=== PATIENT | female | born 1940 | race Caucasian/White ===

== ENCOUNTER 2016-12-12 13:15 | Emergency (ER) | payer MEDICAID, MEDICARE ==
[~2016-12-12] VITALS: Ht 160 cm; Wt 100.9 kg
[2016-12-12 13:26] VITALS: BP 141/75; PULSE 93; RESP 18; O2SAT 99
--- NOTE | 2016-12-12 14:04 | ED.REPORT ---
HPI-General Illness Date of Service Dec 12, 2016 ED Provider: Allie is a 76-year-old female presenting with a complaint of hemorrhoid pain. She reports a one day history of an external hemorrhoid. She complains of pain aggravated by bowel movements. Admits constipation. Denies other symptoms including melena, hematochezia. Nursing Notes Stated Complaint: HEMORRHOID PAIN Chief Complaint: General Complaint Nursing Notes Reviewed: Yes Allergies: Coded Allergies: No Known Allergies (Unverified , 12/12/16) General Time Seen by MD: 14:03 Chief Complaint Hemorrhoid Past Medical History Past Medical History Mantle cell lymphoma, cervical and ovarian cancer. Currently cancer free. Review of Systems Negative unless stated otherwise in history of present illness Physical Exam General: Well appearing, well developed, well nourished, no acute distress. Rectum: 1 cm x 2 cm partially thrombosed external hemorrhoid. Head: Atraumatic, normocephalic. Eyes: No scleral icterus or injection. No discharge. Vision grossly intact. ENT: Voice clear, hearing grossly intact. Respiratory: No respiratory distress, no increased work of breathing. Speaks in complete sentences. Skin: Warm and dry. Neurological: Grossly nonfocal. Psychological: alert and oriented. Speech appropriate, linear and logical. Behavior appropriate. Vital Signs Vital Signs Date Time Temp Pulse Resp B/P Pulse Ox O2 Delivery O2 Flow Rate FiO2 12/12/16 16:33 82 16 140/80 99 Room Air 12/12/16 13:26 37.2 93 18 141/75 99 Normal Procedures Procedure Notes: Hemorrhoid clot excision: Anesthesia with 1% lidocaine with epinephrine 1 mL delivered via 27-gauge needle, incision approximately 1 cm long was placed in the lateral aspect of the hemorrhoid and several small clots are excised. Patient tolerated the procedure well with minimal bleeding. Re-Eval/Medical Decision Med Decision/Clinical Course 76 year old female with a a one-day history of hemorrhoid pain. Reports a remote history of similar. Physical examination reveals a large partially thrombosed external hemorrhoid. This is anesthetized and excise per the procedure note above. Patient feels improvement, wishes to be discharged home. Discussed symptomatic care, primary care follow-up, return to return precautions. Patient verbalized understanding of and consented to plan. While writing this note I realize that while we discussed use of Anusol for treatment, it did not make it into my discharge instructions Discharge & Departure Primary Impression: Thrombosed hemorrhoids Disposition: Home Discharge Condition All VS Reviewed: Yes Condition: Stable Patient Instructions: Thrombosed Hemorrhoid (ED) Additional Instructions: Evaluation for hemorrhoid pain in the emergency department includes review and physical examination which reveals a partially thrombosed hemorrhoid. We have excised the blood clot which should improve your pain significantly. The pain is best treated with 600 mg of ibuprofen (Advil, Motrin) every 6 hours , or 1000 mg of acetaminophen (Tylenol) every 6 hours. These drugs can be taken at the same time for more severe pain. I suggest [id number] MiraLAX as a stool softener to reduce pressure on your hemorrhoids and the need to strain to pass bowel movements. Use a warm sitz bath 3-4 times a day. Follow-up with your primary care provider in a few days to be sure this is progressing as expected. Return to emergency department for any new or worsening symptoms including increasing pain or significant bleeding. Referrals: Arun Lentz MD (Family) Dr. Robbins OTHER,PHYSICIAN EDSupervising Provider for [facility]: Ubaldo Guan MD Attending Statement Attending attestation: I saw this patient in conjunction with Merrick Dexter PA-C. I agree with the workup, evaluation, treatment and disposition. Ubaldo Ko MD, MD Dec 12, 2016 14:04 Merrick Dexter PA-C Dec 12, 2016 16:16
[2016-12-12] MEDS ORDERED: Lidocaine 2% 5 mL Topical Jelly TOPICAL ONE (14:20)
[2016-12-12 16:33] VITALS: BP 140/80; PULSE 82; RESP 16; O2SAT 99
== END 2016-12-12 16:24 | disposition home or self-care (01) ==
LOC: SED 13:15
DX: K64.5 Perianal venous thrombosis (principal)